=== PATIENT | female | born 1945 | race African-American/Black ===

== ENCOUNTER 2021-05-23 07:43 | Inpatient (IN) | payer OTHER, MEDICARE ==
[~2021-05-23] VITALS: Ht 165.1 cm; Wt 87.3 kg
[2021-05-23] MEDS ORDERED: SODIUM CHLORIDE 0.9% 1,000 ML IV ONE (10:45)
[2021-05-23 11:30] LABS: HEMATOCRIT. 36.3 % (36.0-48.0); HEMOGLOBIN. 11.9 g/dL (12.0-16.0); MEAN CORPUSCULAR HEMOGLOBIN 30.1 pg (28.0-32.0); MEAN CORPUSCULAR VOLUME 91.5 fL (81.0-99.0); MEAN PLATELET VOLUME 8.7 fl (7.4-10.4); PLATELET 294 x1000/uL (130-400); RED BLOOD CELL COUNT 3.97 mill/uL (4.2-5.4); RED CELL DISTRIBUTION WIDTH 13.5 % (11.6-14.6)
[2021-05-23 11:34] LABS: CHLORIDE 106 mEq/L (98-107)
[2021-05-23 11:36] LABS: PROTHROMBIN TIME 10.8 sec (9.6-11.0)
[2021-05-23 11:38] LABS: ETHANOL BLOOD < 10 mg/dL
[2021-05-23 12:00] LABS: PLATELET ESTIMATE NORMAL
[2021-05-23] MEDS ORDERED: METHYLPREDNISOLONE SOD SUCC 125 MG/2 ML VIAL IV NR (13:00)
[2021-05-23] MEDS ORDERED: MORPHINE SULFATE 2 MG/ML CPJ (NOT FOR IM USE) IV NR (13:00)
[2021-05-23] MEDS ORDERED: ALBUTEROL (0.083%) 2.5MG/3ML NEB HHN NR (13:00)
[2021-05-23] MEDS ORDERED: POTASSIUM CHLORIDE 20MEQ TABLET SR PO NR (16:45)
[2021-05-23] MEDS ORDERED: NALOXONE HCL 0.4MG/ML VIAL IV PRN (16:45)
[2021-05-23] MEDS ORDERED: METHYLPREDNISOLONE SOD SUCC 40 MG/ML VIAL IV SCH (17:00)
[2021-05-23] MEDS ORDERED: PIPERACILLIN/TAZOBACTAM 3.375GM/50ML PREMIX IV SCH (18:00)
[2021-05-23 18:14] LABS: CLARITY URINE CLEAR (CLEAR); COLOR URINE YELLOW (YELLOW); KETONES URINE NEGATIVE (NEGATIVE); LEUKOCYTE ESTERASE URINE TRACE (NEGATIVE); NITRITE URINE NEGATIVE (NEGATIVE); OCCULT BLOOD URINE NEGATIVE (NEGATIVE); PH URINE 6.5 (4.5-8.0); PROTEIN URINE NEGATIVE (NEGATIVE); SPECIFIC GRAVITY URINE 1.014 (1.005-1.030)
[2021-05-23 18:27] VITALS: BP 135/55
[2021-05-23 20:00] VITALS: BP 132/66
[2021-05-23] MEDS: METHYLPREDNISOLONE SOD SUCC 40 MG/ML VIAL IV SCH (22:23)
[2021-05-23] MEDS: PIPERACILLIN/TAZOBACTAM 3.375G in DEXT 5% WATER 50ML IV SCH (23:47)
[2021-05-24] VITALS: BP 133/69
[2021-05-24 04:00] VITALS: BP 136/77
[2021-05-24] MEDS: METHYLPREDNISOLONE SOD SUCC 40 MG/ML VIAL IV SCH ×2 (05:45→14:19)
[2021-05-24] MEDS: PIPERACILLIN/TAZOBACTAM 3.375G in DEXT 5% WATER 50ML IV SCH ×3 (05:45→21:18)
[2021-05-24 07:00] LABS: HEMOGLOBIN. 11.1 g/dL (12.0-16.0); MEAN CORPUSCULAR VOLUME 91.6 fL (81.0-99.0); MEAN PLATELET VOLUME 9.1 fl (7.4-10.4); PLATELET 272 x1000/uL (130-400); RED BLOOD CELL COUNT 3.71 mill/uL (4.2-5.4)
[2021-05-24 07:46] LABS: CHLORIDE 111 mEq/L (98-107)
[2021-05-24 08:00] VITALS: BP 142/69
[2021-05-24 12:00] VITALS: BP 160/69
[2021-05-24 13:01] LABS: PLATELET ESTIMATE NORMAL
[2021-05-24] MEDS ORDERED: CLONIDINE 0.1MG TABLET PO SCH (14:00)
[2021-05-24] MEDS ORDERED: CLONIDINE 0.1MG TABLET PO PRN (14:15)
[2021-05-24 16:00] VITALS: BP 149/66
[2021-05-24 20:00] VITALS: BP 156/87
[2021-05-25 00:34] VITALS: BP 150/74
[2021-05-25 04:00] VITALS: BP 141/70
[2021-05-25] MEDS: PIPERACILLIN/TAZOBACTAM 3.375G in DEXT 5% WATER 50ML IV SCH ×3 (05:24→22:20)
[2021-05-25 06:11] LABS: HEMATOCRIT. 32.9 % (36.0-48.0); HEMOGLOBIN. 10.7 g/dL (12.0-16.0); MEAN CORPUSCULAR HEMOGLOBIN 29.8 pg (28.0-32.0); MEAN CORPUSCULAR VOLUME 91.2 fL (81.0-99.0); MEAN PLATELET VOLUME 9.2 fl (7.4-10.4); PLATELET 299 x1000/uL (130-400)
[2021-05-25 08:00] VITALS: BP 165/84
[2021-05-25] MEDS ORDERED: METHYLPREDNISOLONE SOD SUCC 40 MG/ML VIAL IV SCH (09:00)
[2021-05-25 12:00] VITALS: BP 156/82
[2021-05-25] MEDS ORDERED: FENTANYL CITRATE/PF 50MCG/ML 2ML VIAL ONE (12:56)
[2021-05-25] MEDS ORDERED: MIDAZOLAM HCL 2 MG/2 ML VIAL ONE (12:56)
[2021-05-25] MEDS ORDERED: SUCCINYLCHOLINE CHLORIDE 200MG/10ML IV ONE (12:56)
[2021-05-25] MEDS ORDERED: GLYCOPYRROLATE 0.2 MG/ML 2ML VIAL ONE (12:56)
[2021-05-25] MEDS ORDERED: ONDANSETRON HCL 4MG/2ML INJ ONE (12:56)
[2021-05-25] MEDS ORDERED: PROPOFOL 200MG/20ML VIAL IV ONE (12:56)
[2021-05-25] MEDS ORDERED: METOCLOPRAMIDE HCL 10MG/2ML VIAL ONE (12:56)
[2021-05-25] MEDS ORDERED: P20 MT (14:39)
[2021-05-25] MEDS ORDERED: CEPH500T MT (14:39)
[2021-05-25 16:00] VITALS: BP 156/77
[2021-05-25 17:11] LABS: PLATELET ESTIMATE NORMAL
[2021-05-25 20:00] VITALS: BP 155/66
[2021-05-25] MEDS: HYDROCODONE/ACETAMINOPHEN 5/325MG TABLET PO PRN (20:39)
[2021-05-26] VITALS: BP 153/75
[2021-05-26 04:00] VITALS: BP 144/75
[2021-05-26] MEDS: HYDROCODONE/ACETAMINOPHEN 5/325MG TABLET PO PRN ×2 (05:05→13:45)
[2021-05-26] MEDS: PIPERACILLIN/TAZOBACTAM 3.375G in DEXT 5% WATER 50ML IV SCH ×2 (05:13→13:41)
[2021-05-26 08:00] VITALS: BP 158/78
[2021-05-26 10:28] LABS: BASOPHILS % 0.1 % (0.0-2.0); EOSINOPHILS % 0.1 % (0.0-5.0); HEMATOCRIT. 33.9 % (36.0-48.0); LYMPHOCYTES % 16.3 % (20.0-50.0); MEAN CORPUSCULAR HEMOGLOBIN 29.7 pg (28.0-32.0); MEAN CORPUSCULAR VOLUME 91.7 fL (81.0-99.0); MEAN PLATELET VOLUME 9.2 fl (7.4-10.4); MONOCYTES % 7.2 % (2.0-8.0); NEUTROPHILS % 76.3 % (40.0-76.0); PLATELET 306 x1000/uL (130-400); RED CELL DISTRIBUTION WIDTH 13.8 % (11.6-14.6)
[2021-05-26 12:00] VITALS: BP 150/62
[2021-05-26 12:28] VITALS: BP 158/78
[2021-05-26 16:00] VITALS: BP 158/75
== END 2021-05-26 18:40 | disposition home or self-care (01) | DRG 854 ==
LOC: ER 07:43 → 7EST 16:16 → ENRESERV 17:16
PROVIDERS: ADMIT Family Medicine Adult Medicine; ATTEND Family Medicine Adult Medicine
PROC: 0T768DZ Dilation of Right Ureter with Intraluminal Device, Via Natural or Artificial Opening Endoscopic (ICD-10-PCS; principal; 2021-05-25)
DX: A41.9 Sepsis, unspecified organism (principal); J44.1 Chronic obstructive pulmonary disease with (acute) exacerbation; N13.2 Hydronephrosis with renal and ureteral calculous obstruction; Z96.659 Presence of unspecified artificial knee joint; K80.20 Calculus of gallbladder without cholecystitis without obstruction; R16.0 Hepatomegaly, not elsewhere classified; Z20.822 Contact with and (suspected) exposure to COVID-19; R74.01 Elevation of levels of liver transaminase levels; M19.90 Unspecified osteoarthritis, unspecified site; E87.6 Hypokalemia; Z59.00 Homelessness unspecified; Z59.02 Unsheltered homelessness; Z91.81 History of falling
CPT/HCPCS: 36415; 71045; 74018; 74176; 76000; 76705; 80048; 80053; 80076; 80320; 81003; 83605; 83880; 84145; 84484; 85025; 87426; 93005; 94640; 99285; C1769; C1893; C2617; J0330; J2250; J2270; J2405; J2543; J2704; J2765; J2920; J2930; J3010; J3490; J7030; J7040; J7060; G0480